=== PATIENT | male | born 1985 | race Caucasian/White ===

== ENCOUNTER 2019-08-27 14:57 | Inpatient (IN) | payer OTHER ==
[2019-08-27 15:13] VITALS: BMI 17.5
[2019-08-27] MEDS ORDERED: FAMOTIDINE 20 MG/50 ML IVPB 20 MG/50 ML MG IVPB ONE ×2 (15:44→16:00)
[2019-08-27] MEDS ORDERED: SODIUM CHLORIDE 0.9% 500 ML INFUS.BAG IV ONE ×2 (15:45→22:03)
[2019-08-27] MEDS ORDERED: MECLIZINE HCL 25 MG TABLET (FP) PO ONE ×2 (15:46→19:05)
--- NOTE | 2019-08-27 15:56 | PDOC ---
History of Present Illness - General Chief Complaint: Lightheaded Stated Complaint: DIZZINESS Time Seen by Provider: 08/27/19 15:21 History Source: Patient Exam Limitations: No Limitations - History of Present Illness Initial Comments: 08/27/19 15:46 Patient is a 33-year-old transgender now male on testosterone injections, history of anxiety depression, seasonal and food allergies, bilateral mastectomy complaining of dizziness since 7 AM this morning. Patient states that he started getting the symptoms while laying in bed described as a spinning, associated with nausea, no vomiting. States he has been laying in bed all day with eyes close since this alleviates his symptoms, but aggravated with movement. Reports he has had a URI symptoms last week but getting better. He endorses having these symptoms intermittently but never this bad for the past 2 to 3 months. States usually lasts for few hours then resolves. He has taken no meds for his symptoms. Denies ringing in the ear, headache, fever, chills. No recent travel. PMD: Dr. Porter PMHX: as above PSOCHX: neg etoh, drug, cig PFamHX: noncontributory ALL: NKDA GENERAL/CONSTITUTIONAL: [No fever or chills. No weakness. No weight change.] HEAD, EYES, EARS, NOSE AND THROAT: [No change in vision. No ear pain or discharge. No sore throat.] CARDIOVASCULAR: [No chest pain or shortness of breath.] RESPIRATORY: [No cough, wheezing, or hemoptysis.] GASTROINTESTINAL: [No nausea, vomiting, diarrhea or constipation. No rectal bleeding.] GENITOURINARY: [No dysuria, frequency, or change in urination.] MUSCULOSKELETAL: [No joint or muscle swelling or pain. No neck or back pain.] SKIN AND BREASTS: [No rash or easy bruising.] NEUROLOGIC: [No headache, (+) vertigo, (-) loss of consciousness, or loss of sen sation.] PSYCHIATRIC: [(+) depression or anxiety.] ENDOCRINE: [No increased thirst. No abnormal weight change.] HEMATOLOGIC/LYMPHATIC: [No anemia, easy bleeding, or history of blood clots.] ALLERGIC/IMMUNOLOGIC: [No hives or skin allergy. No latex allergy.] GENERAL: [The patient is awake, alert, and fully oriented, in acute distress, shielding eyes.] HEAD: [Normal with no signs of trauma.] EYES: [Pupils equal, round and reactive to light, extraocular movements intact, sclera anicteric, conjunctiva clear.] ENT: [Ears normal, nares patent, oropharynx clear without exudates. Moist mucous membranes.] NECK: [Normal range of motion, supple without lymphadenopathy, JVD, or masses.] LUNGS: [Breath sounds equal, clear to auscultation bilaterally. No wheezes, and no crackles.] HEART: [Regular rate and rhythm, normal S1 and S2 without murmur, rub.] ABDOMEN: [Soft, nontender, normoactive bowel sounds. No guarding, no rebound. No masses.] EXTREMITIES: [Normal range of motion, no edema. No clubbing or cyanosis. No cords, erythema, or tenderness.] NEUROLOGICAL: [Cranial nerves II through XII grossly intact. Normal speech, gait not tested, (+) nystagmus, 5/5 strength, no facial asymmetry, moving all extremities] PSYCH: [Normal mood, normal affect.] SKIN: [Warm, Dry, normal turgor, no rashes or lesions noted.] Past History - Past Medical History Allergies/Adverse Reactions: Allergies Allergy/AdvReac Type Severity Reaction Status Date / Time No Known Allergies Allergy Verified 08/27/19 15:10 Home Medications: Ambulatory Orders Testosterone Enanthate [Xyosted] 0 mg SQ ASDIR 08/27/19 COPD: No Other medical history: DENIES - Immunization History Immunization Up to Date: Yes - Psycho Social/Smoking Cessation Hx Smoking History: Never smoked Hx Alcohol Use: No Drug/Substance Use Hx: No *Physical Exam - Vital Signs Last Vital Signs Temp Pulse Resp BP Pulse Ox 97.9 F 100 H 18 114/72 100 08/27/19 15:11 08/27/19 15:11 08/27/19 15:11 08/27/19 15:11 08/27/19 15:11 ED Treatment Course - LABORATORY CBC & Chemistry Diagram: 08/27/19 16:17 08/27/19 16:17 Medical Decision Making - Medical Decision Making 08/27/19 15:46 Patient is a 33-year-old transgender now male on testosterone injections, history of anxiety depression, seasonal and food allergies, bilateral mastectomy complaining of dizziness since 7 AM this morning. Patient states that he started getting the symptoms while laying in bed described as a spinning, associated with nausea, no vomiting. States he has been laying in bed all day with eyes close since this alleviates his symptoms, but aggravated with movement. Reports he has had a URI symptoms last week but getting better. He endorses having these symptoms intermittently but never this bad for the past 2 to 3 months. States usually lasts for few hours then resolves. He has taken no meds for his symptoms. Denies ringing in the ear, headache, fever, chills. No recent travel. Symptoms consistent with vertigo Labs Reglan, IV fluids, Antivert Reassess Patient initially refused Antivert stating that he is unable to sit up to take the pill. Patient continued to have symptoms however is requesting something to eat. After eating patient decided he would take the Antivert at that point. 08/27/19 17:19 SR rate 107, right axis incomplete RBBB Labs reviewed no acute findings Patient continues to be symptomatic of vertigo unable/refusing to sit up in bed. Was given Valium 5 mg p.o. 08/27/19 23:31 Patient seems improved he is now sitting up on the bed however he states he still has some vertigo symptoms. He was therefore, given repeat dose of Reglan 10 mg IV and will saline for CT scan of his head. 08/27/19 23:52 Patient Full Name: MAGDALENE CARLISLE Patient Accession No: [id number] Patient : [id number] Reason for Exam: dizziness Referring Physician: Patient Name: MAYLIN DEL CASTILLO THIS IS A PRELIMINARY REPORT FROM [facility] EXAM: CT Head wo IMAGES: 224 EXAM DATE AND TIME: 2019-08-27 23:24:00 HISTORY: 33 year old man: Dizziness. COMPARISON: None TECHNIQUE: Non-contrast axial images were obtained. Coronal images were also generated. FINDINGS: The cerebral sulci and ventricles are normal in size. There are no intracranial hemorrhages, extra-axial fluid collections or evidence of an intra- axial mass lesion. There is no evidence of an acute or chronic ischemic lesion at this time. Orbital and petrous structures, cerebellopontine angles, and posterior fossa appear unremarkable. The paranasal and mastoid sinuses are clear. IMPRESSION: Normal CT scan of the head. No intracranial hemorrhages, extra-axial fluid collections or intra-axial mass lesion. . One or more of the following dose reduction techniques were used: automated exposure control, adjustment of the mA and/or kV according to patient size, use of iterative reconstructive technique. THIS DOCUMENT HAS BEEN ELECTRONICALLY SIGNED Errol Beck MD. 08/27/2019 23:48 EST M.D. Please call [facility] [phone] ([phone]) with questions. INTERPRETING RADIOLOGIST: Errol Beck MD Electronically Signed: Aug 27, 2019 11:48PM EST CT head showed no acute findings. Patient still complains of dizziness symptoms on sitting up. PE: NEURO: (+) Nystagmus, inability to tandem gait. Will admit patient for persistent vertigo to observation and neuro follow-up in the a.m. Endorsed to the night team pending admission Discharge - Discharge Information Problems reviewed: Yes Clinical Impression/Diagnosis: Vertigo Condition: Stable - Follow up/Referral Referrals: ON STAFF,NOT [Primary Care Provider] - Fatimah Ashby MD [Staff Physician] - - Patient Discharge Instructions Patient Printed Discharge Instructions: DI for Benign Paroxysmal Positional Vertigo - Post Discharge Activity
[2019-08-27] MEDS ORDERED: MECLIZINE HCL 25 MG TABLET (FP) ONE ×2 (16:00→18:46)
[2019-08-27 16:33] LABS: BASO % 0.5 % (0-2.0); EOS % 0.4 % (0-4.5); HEMOGLOBIN 16.5 GM/dL (11.7-16.9); LYMPH % 11.1 % (8-40); MCH 29.8 pg (25.7-33.7); MCHC 33.7 g/dl (32.0-35.9); MEAN CELL VOLUME 88.6 fl (80-96); MEAN PLT VOLUME 7.6 fl (7.5-11.1); MONO % 7.1 % (3.8-10.2); NEUT % 80.9 % (42.8-82.8); PLATELET COUNT 269 K/MM3 (134-434); RBC 5.53 M/mm3 (4.00-5.60); RDW 13.3 % (11.9-15.9); WHITE BLOOD COUNT 10.5 K/mm3 (4.0-10.0)
[2019-08-27] MEDS ORDERED: METOCLOPRAMIDE HCL INJECTION 10 MG/2 ML VIAL IVPUSH ONE ×2 (16:45→23:07)
[2019-08-27] MEDS ORDERED: METOCLOPRAMIDE HCL INJECTION 10 MG/2 ML VIAL ONE ×2 (16:55→23:20)
[2019-08-27 17:10] LABS: ALBUMIN 3.7 g/dl (3.4-5.0); BILIRUBIN,TOTAL 0.7 mg/dL (0.2-1); BLOOD UREA NITROGEN 11.5 mg/dL (7-18); CALCIUM 8.5 mg/dL (8.5-10.1); CREATININE 0.8 mg/dL (0.55-1.3); POTASSIUM 3.5 mmol/L (3.5-5.1); TOT PROT 7.1 g/dl (6.4-8.2)
[2019-08-27] MEDS ORDERED: diazePAM 5 MG TABLET ONE ×2 (19:43→19:56)
[2019-08-27] MEDS: diazePAM 5 MG TABLET PO ONE ×2 (19:49→19:59)
[2019-08-27 20:14] LABS: URINE APPEARANCE CLEAR; URINE BILIRUBIN NEGATIVE (NEGATIVE); URINE COLOR YELLOW; URINE GLUCOSE (UA) NEGATIVE (NEGATIVE); URINE KETONE 1+ (NEGATIVE); URINE LEUK ESTERASE NEGATIVE (NEGATIVE); URINE NITRITE NEGATIVE (NEGATIVE); URINE PROTEIN NEGATIVE (NEGATIVE); URINE UROBILINOGEN 0.2 mg/dL (0.2-1.0)
--- NOTE | 2019-08-28 00:12 | PDOC ---
*Physical Exam - Vital Signs Last Vital Signs Temp Pulse Resp BP Pulse Ox 97.9 F 100 H 18 114/72 100 08/27/19 15:11 08/27/19 15:11 08/27/19 15:11 08/27/19 15:11 08/27/19 15:11 ED Treatment Course - LABORATORY CBC & Chemistry Diagram: 08/27/19 16:17 08/27/19 16:17 - ADDITIONAL ORDERS Additional order review: Laboratory Results 08/27/19 08/27/19 20:00 16:17 Sodium 141 Potassium 3.5 Chloride 107 Carbon Dioxide 26 Anion Gap 8 BUN 11.5 Creatinine 0.8 Est GFR (CKD-EPI)AfAm 137.96 Est GFR (CKD-EPI)NonAf 119.03 Random Glucose 98 Calcium 8.5 Total Bilirubin 0.7 AST 27 ALT 18 Alkaline Phosphatase 63 Total Protein 7.1 Albumin 3.7 Urine Color Yellow Urine Appearance Clear Urine pH 5.0 Ur Specific [place] 1.022 Urine Protein Negative Urine Glucose (UA) Negative Urine Ketones 1+ H Urine Blood Negative Urine Nitrite Negative Urine Bilirubin Negative Urine Urobilinogen 0.2 Ur Leukocyte Esterase Negative 08/27/19 16:17 RBC 5.53 MCV 88.6 MCHC 33.7 RDW 13.3 MPV 7.6 Neutrophils % 80.9 Lymphocytes % 11.1 Monocytes % 7.1 Eosinophils % 0.4 Basophils % 0.5 - Medications Given in the ED: ED Medications Discontinued Medications Generic Name Dose Route Start Last Admin Trade Name Freq PRN Reason Stop Dose Admin Diazepam 5 mg 08/27/19 19:26 08/27/19 19:59 Valium - PO 08/27/19 19:27 5 mg ONCE ONE Administration Famotidine/Sodium Chloride 20 mg in 50 mls @ 100 mls/hr 08/27/19 15:44 08/27/19 16:10 Pepcid 20 Mg Premixed Ivpb - IVPB 08/27/19 16:13 100 mls/hr ONCE ONE Administration Meclizine HCl 50 mg 08/27/19 15:46 08/27/19 16:10 Antivert - PO 08/27/19 15:47 Not Given ONCE ONE Meclizine HCl 50 mg 08/27/19 19:05 08/27/19 18:50 Antivert - PO 08/27/19 19:06 50 mg ONCE ONE Administration Metoclopramide HCl 10 mg 08/27/19 16:45 08/27/19 16:55 Reglan Injection - IVPUSH 08/27/19 16:46 10 mg ONCE ONE Administration Metoclopramide HCl 10 mg 08/27/19 23:07 08/27/19 23:22 Reglan Injection - IVPUSH 08/27/19 23:08 10 mg ONCE ONE Administration Sodium Chloride 1,000 ml 08/27/19 15:45 08/27/19 16:10 Normal Saline - IV 08/27/19 15:46 1,000 ml ONCE ONE Administration Sodium Chloride 1,000 ml 08/27/19 22:03 08/27/19 22:14 Normal Saline - IV 08/27/19 22:04 1,000 ml ONCE ONE Administration Medical Decision Making - Medical Decision Making 08/28/19 00:12 Pt signed out to me: Patient Name: MAYLIN DEL CASTILLO THIS IS A PRELIMINARY REPORT FROM [facility] EXAM: CT Head wo IMAGES: 224 EXAM DATE AND TIME: 2019-08-27 23:24:00 HISTORY: 33 year old man: Dizziness. COMPARISON: None TECHNIQUE: Non-contrast axial images were obtained. Coronal images were also generated. FINDINGS: The cerebral sulci and ventricles are normal in size. There are no intracranial hemorrhages, extra-axial fluid collections or evidence of an intra-axial mass lesion. There is no evidence of an acute or chronic ischemic lesion at this time. Orbital and petrous structures, cerebellopontine angles, and posterior fossa appear unremarkable. The paranasal and mastoid sinuses are clear. IMPRESSION: Normal CT scan of the head. No intracranial hemorrhages, extra-axial fluid collections or intra-axial mass lesion. 08/28/19 00:12 Pt will have utox sent 08/28/19 19:50 Pt still has vertigo and is refusing to leave and so he will be admitted to hospitalists. 08/28/19 19:59 Discharge - Discharge Information Problems reviewed: Yes Clinical Impression/Diagnosis: Vertigo Condition: Improved - Follow up/Referral - Patient Discharge Instructions - Post Discharge Activity
--- NOTE | 2019-08-28 00:33 | PDOC ---
*Physical Exam - Vital Signs Last Vital Signs Temp Pulse Resp BP Pulse Ox 97.9 F 100 H 18 114/72 100 08/27/19 15:11 08/27/19 15:11 08/27/19 15:11 08/27/19 15:11 08/27/19 15:11 ED Treatment Course - LABORATORY CBC & Chemistry Diagram: 08/27/19 16:17 08/27/19 16:17 - ADDITIONAL ORDERS Additional order review: Laboratory Results 08/27/19 08/27/19 20:00 16:17 Sodium 141 Potassium 3.5 Chloride 107 Carbon Dioxide 26 Anion Gap 8 BUN 11.5 Creatinine 0.8 Est GFR (CKD-EPI)AfAm 137.96 Est GFR (CKD-EPI)NonAf 119.03 Random Glucose 98 Calcium 8.5 Total Bilirubin 0.7 AST 27 ALT 18 Alkaline Phosphatase 63 Total Protein 7.1 Albumin 3.7 Urine Color Yellow Urine Appearance Clear Urine pH 5.0 Ur Specific [place] 1.022 Urine Protein Negative Urine Glucose (UA) Negative Urine Ketones 1+ H Urine Blood Negative Urine Nitrite Negative Urine Bilirubin Negative Urine Urobilinogen 0.2 Ur Leukocyte Esterase Negative 08/27/19 16:17 RBC 5.53 MCV 88.6 MCHC 33.7 RDW 13.3 MPV 7.6 Neutrophils % 80.9 Lymphocytes % 11.1 Monocytes % 7.1 Eosinophils % 0.4 Basophils % 0.5 - Medications Given in the ED: ED Medications Discontinued Medications Generic Name Dose Route Start Last Admin Trade Name Freq PRN Reason Stop Dose Admin Diazepam 5 mg 08/27/19 19:26 08/27/19 19:59 Valium - PO 08/27/19 19:27 5 mg ONCE ONE Administration Famotidine/Sodium Chloride 20 mg in 50 mls @ 100 mls/hr 08/27/19 15:44 08/27/19 16:10 Pepcid 20 Mg Premixed Ivpb - IVPB 08/27/19 16:13 100 mls/hr ONCE ONE Administration Meclizine HCl 50 mg 08/27/19 15:46 08/27/19 16:10 Antivert - PO 08/27/19 15:47 Not Given ONCE ONE Meclizine HCl 50 mg 08/27/19 19:05 08/27/19 18:50 Antivert - PO 08/27/19 19:06 50 mg ONCE ONE Administration Metoclopramide HCl 10 mg 08/27/19 16:45 08/27/19 16:55 Reglan Injection - IVPUSH 08/27/19 16:46 10 mg ONCE ONE Administration Metoclopramide HCl 10 mg 08/27/19 23:07 08/27/19 23:22 Reglan Injection - IVPUSH 08/27/19 23:08 10 mg ONCE ONE Administration Sodium Chloride 1,000 ml 08/27/19 15:45 08/27/19 16:10 Normal Saline - IV 08/27/19 15:46 1,000 ml ONCE ONE Administration Sodium Chloride 1,000 ml 08/27/19 22:03 08/27/19 22:14 Normal Saline - IV 08/27/19 22:04 1,000 ml ONCE ONE Administration Medical Decision Making - Medical Decision Making 08/28/19 00:31 Pt signed out to me by SANDI Goins. 33 transgender M who presents with intractable vertigo. CTH negative. Pending admission for intractable vertiginous symptoms. No neuro consult. Pending call back from admitting team. 08/28/19 00:40 Patient endorsed for admission under Dr. Petersen. Discharge - Discharge Information Problems reviewed: Yes Clinical Impression/Diagnosis: Vertigo Condition: Guarded - Admission Yes - Follow up/Referral Referrals: ON STAFF,NOT [Primary Care Provider] - Fatimah Ashby MD [Staff Physician] - - Patient Discharge Instructions Patient Printed Discharge Instructions: DI for Benign Paroxysmal Positional Vertigo - Post Discharge Activity
--- NOTE | 2019-08-28 01:55 | HP ---
CHIEF COMPLAINT: vertigo PCP: Dr. Porter HISTORY OF PRESENT ILLNESS: Alexx Ann is a 33 year old transgender female to male with a past medical history of anxiety and depression presenting for vertigo. Patient awoke at 7AM this morning and had vertigo which was unremitting and persistent throughout the day. Associated with the vertigo was nausea, poor PO intake, very mild headache. Of note, patient just recovered from a URI which started 1 week prior and ended this past . Vertigo is exacerbated with head and body movement. Denies tinnitus, hearing loss, ear pain, ear fullness, new lesions on the skin, phonophobia. Vertigo lasted for the entire day and is only mildly relieved with closing of the eyes and rest. Previously had episodes of brief vertigo like episodes upon sudden standing in the last several months that lasted for seconds and disappeared. Also had an episode of vertigo many years prior but unknown what that vertigo episode was associated with. Denied fever, chills, chest pain, shortness of breath, abdominal pain, constipation, diarrhea, dysuria, hematuria, frequency, urgency, focal weakness, dysphagia, dysarthria, visual changes. Patient denies recent travel, sick contacts. No travel to [place], [place], [place]. 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 Allergies No Known Allergies Allergy (Verified 08/27/19 15:10) HOME MEDICATIONS: Home Medications Medication Instructions Recorded Testosterone Enanthate [Xyosted] 0 mg SQ ASDIR 08/27/19 REVIEW OF SYSTEMS CONSTITUTIONAL: loss of appetite Absent: fever, chills, diaphoresis, generalized weakness, malaise, weight change HEENT: Absent: rhinorrhea, nasal congestion, throat pain, throat swelling, difficulty swallowing, visual changes CARDIOVASCULAR: Absent: chest pain, syncope, palpitations, irregular heart rate, lightheadedness, peripheral edema RESPIRATORY: Absent: cough, shortness of breath, dyspnea with exertion, orthopnea, wheezing GASTROINTESTINAL: nausea Absent: abdominal pain, abdominal distension, vomiting, diarrhea, constipation GENITOURINARY: Absent: dysuria, frequency, urgency, hesitancy, hematuria, MUSCULOSKELETAL: Absent: myalgia, arthralgia, joint swelling, back pain, neck pain SKIN: Absent: rash, itching, pallor HEMATOLOGIC/IMMUNOLOGIC: Absent: easy bleeding, easy bruising, lymphadenopathy, frequent infections ENDOCRINE: Absent: unexplained weight gain, unexplained weight loss, heat intolerance, cold intolerance NEUROLOGIC: Absent: focal weakness or paresthesias, seizureheadache, dizziness, unsteady gait, mental status changes, bladder or bowel incontinence PSYCHIATRIC: Absent: anxiety, depression, suicidal or homicidal ideation, hallucinations. PHYSICAL EXAMINATION Vital Signs - 24 hr 08/27/19 08/28/19 15:11 01:41 Temperature 97.9 F 98.7 F Pulse Rate 100 H 114 H Respiratory 18 20 Rate Blood Pressure 114/72 114/70 O2 Sat by Pulse 100 Oximetry (%) GENERAL: Awake, alert, and fully oriented, in mild acute distress. Thin appearing HEAD: Normal with no signs of trauma. EYES: Pupils equal, round and reactive to light, extraocular movements intact, conjunctiva clear. Left beating nystagmus noted exacerbated by moving to the left. EARS, NOSE, THROAT: Oropharynx clear without exudates. Moist mucous membranes. NECK: Normal range of motion, supple without lymphadenopathy, JVD. LUNGS: Breath sounds equal, clear to auscultation bilaterally. No wheezes, and no crackles. No accessory muscle use. HEART: Regular rate and rhythm, normal S1 and S2 without murmur. ABDOMEN: Soft, nontender, not distended, normoactive bowel sounds, no guarding, no rebound, no masses. MUSCULOSKELETAL: Normal range of motion at all joints. No bony deformities or tenderness. UPPER EXTREMITIES: 2+ pulses, warm, well-perfused. No cyanosis. No clubbing. No peripheral edema. LOWER EXTREMITIES: 2+ pulses, warm, well-perfused. No calf tenderness. No peripheral edema. NEUROLOGICAL: Cranial nerves II-XII intact. Nystagmus as above. [place] localizing to left ear, AC>BC on bone sides, indicating probability for sensorineural hearing loss on right side. 5/5 muscle strength bilaterally upper and lower extremities. Sensation intact to gross touch throughout. PSYCHIATRIC: Cooperative. Avoids eye contact due to dizziness. Appropriate mood and affect. SKIN: Warm, dry, normal turgor, noted bilateral mastectomy scars. Numerous tattoos. No lesions noted on the skin. Laboratory Results - last 24 hr 08/27/19 08/27/19 08/27/19 16:17 16:17 20:00 WBC 10.5 H RBC 5.53 Hgb 16.5 Hct 49.0 MCV 88.6 MCH 29.8 MCHC 33.7 RDW 13.3 Plt Count 269 MPV 7.6 Absolute Neuts (auto) 8.5 H Neutrophils % 80.9 Lymphocytes % 11.1 Monocytes % 7.1 Eosinophils % 0.4 Basophils % 0.5 Nucleated RBC % 0 Sodium 141 Potassium 3.5 Chloride 107 Carbon Dioxide 26 Anion Gap 8 BUN 11.5 Creatinine 0.8 Est GFR (CKD-EPI)AfAm 137.96 Est GFR (CKD-EPI)NonAf 119.03 Random Glucose 98 Calcium 8.5 Total Bilirubin 0.7 AST 27 ALT 18 Alkaline Phosphatase 63 Total Protein 7.1 Albumin 3.7 Urine Color Yellow Urine Appearance Clear Urine pH 5.0 Ur Specific [place] 1.022 Urine Protein Negative Urine Glucose (UA) Negative Urine Ketones 1+ H Urine Blood Negative Urine Nitrite Negative Urine Bilirubin Negative Urine Urobilinogen 0.2 Ur Leukocyte Esterase Negative Alcohol, Quantitative 08/28/19 00:25 WBC RBC Hgb Hct MCV MCH MCHC RDW Plt Count MPV Absolute Neuts (auto) Neutrophils % Lymphocytes % Monocytes % Eosinophils % Basophils % Nucleated RBC % Sodium Potassium Chloride Carbon Dioxide Anion Gap BUN Creatinine Est GFR (CKD-EPI)AfAm Est GFR (CKD-EPI)NonAf Random Glucose Calcium Total Bilirubin AST ALT Alkaline Phosphatase Total Protein Albumin Urine Color Urine Appearance Urine pH Ur Specific [place] Urine Protein Urine Glucose (UA) Urine Ketones Urine Blood Urine Nitrite Urine Bilirubin Urine Urobilinogen Ur Leukocyte Esterase Alcohol, Quantitative < 3 CT of the head: IMPRESSION: Normal CT scan of the head. No intracranial hemorrhages, extra-axial fluid collections or intra-axial mass lesion. EKG--> sinus tachycardia, incomplete RBBB, QTc 456 ASSESSMENT/PLAN: Alexx Ann is a 33 year old transgender female to male with a past medical history of anxiety and depression admitted for vertigo likely in the setting of vestibular neuritis/labyrinthitis. Vertigo - in the setting of recent URI and unremitting vertigo symptoms with questionable sensorineural hearing loss suspicious for vestibular neuritis vs labyrinthitis - unlikely BPPV due to longevity of symptoms, [place] due to lack of tinnitus and ear fullness, herpes zoster due to lack of lesions or history of herpes zoster, no history of trauma or aminoglycoside use - Testosterone injections with <3% chance of causing vertigo like symptoms as per UptoDate and unlikely in this case as the patient has been on injections without reactions since 2011. Last injection 2 weeks prior. - as per Upto[employer] for vestibular neuritis/labyrinthitis will initiate corticosteroid treatment 60mg for 5 days, and then taper 40, 30, 20, 10, 5 for 5 days. - CT as above, awaiting final read - neurology consulted - continue meclizine 25mg q6h prn - Reglan for nausea - Utox negative - neurochecks - bedrest, fall precautions - Physical therapy Malnourished - BMI 17.6 and very thin on exam, Albumin normal 3.7 - endorses good diet - dietary consulted - dietary supplement DVT PPx - heparin 5000 units subq bid FEN - no standing fluids, encourage PO intake - continue to monitor electrolytes and replete as necessary - Regular diet Dispo - admit to Med-surg Family Medical History Family Hx Cardiac Disorders: Grandmother (maternal) (pacemaker) Family Hx Diabetes: Grandmother (maternal), Grandfather (maternal) Visit type - Emergency Visit Emergency Visit: Yes ED Registration Date: 08/28/19 Care time: The patient presented to the Emergency Department on the above date and was hospitalized for further evaluation of their emergent condition. - New Patient This patient is new to me today: Yes Date on this admission: 08/28/19 - Critical Care Critical Care patient: No
[2019-08-28] MEDS ORDERED: MECLIZINE HCL 25 MG TABLET (FP) PO PRN (03:00)
--- NOTE | 2019-08-28 03:13 | PN ---
Teaching Attending Note Name of Resident: Joey Gold ATTENDING PHYSICIAN STATEMENT I saw and evaluated the patient. I reviewed the resident's note and discussed the case with the resident. I agree with the resident's findings and plan as documented. SUBJECTIVE: 33-year-old transgender female to male with past history of anxiety presents complaining of vertigo since 7 AM on 08/27/2019. Vertigo was persistent related to any change in position. Reported some mild nausea, had a URI which started about 1 week ago and ended 2 days prior to symptom onset. Denied any significant headaches or any focal neurological deficits. Of note patient takes testosterone injections every 2 weeks and is status post bilateral mastectomy. Denied any hearing difficulties or any ear fullness. OBJECTIVE: Last Vital Signs Temp Pulse Resp BP Pulse Ox 98.7 F 114 H 20 114/70 100 08/28/19 01:41 08/28/19 01:41 08/28/19 01:41 08/28/19 01:41 08/27/19 15:11 On physical exam patient was not in not in any acute distress. Head was atraumatic, normocephalic. Mucous membranes were moist. Neck was supple. Cardiovascular exam was S1, S2 normal rate and rhythm. Lungs clear to auscultation bilaterally. Abdomen was soft, nontender. Motor strength is intact in all extremities. Skin was negative for any vesicular lesions. Abnormal Lab Results 08/27/19 08/27/19 16:17 20:00 WBC 10.5 H Absolute Neuts (auto) 8.5 H Urine Ketones 1+ H Head CT was negative for any acute insults. ASSESSMENT AND PLAN: 33-year-old transgender male with persistent vertigo. Suspect possible labyrinthitis status post upper respiratory tract infection. Less likely benign positional vertigo as does not improve with position change. Less likely CVA given's patient's young age and lack of other neurological findings. Admit to MedSurg V fluid hydration Meclizine PRN if persistent vertigo Zofran IV as needed if nausea Neurology consult Prednisone 60 mg p.o. and then taper for possible postinfectious labyrinthitis Bedrest and fall precautions Physical therapy evaluation SCDs for DVT prophylaxis
[2019-08-28] MEDS: HEPARIN NA (PORCINE) 5,000 UNITS/ML 1ML VIAL SQ SCH ×2 (03:25→05:21)
[2019-08-28] MEDS: predniSONE 20 MG TABLET (UD) PO SCH ×2 (03:25→09:37)
[2019-08-28 03:47] LABS: COCAINE, UR NEGATIVE ng/ml (CUTOFF=300); METHADONE, UR NEGATIVE ng/ml (CUTOFF=300); OPIATES, URI NEGATIVE ng/ml (CUTOFF=300); PHENCYCLIDINE,URINE NEGATIVE ng/ml (CUTOFF=25); URINE AMPHETAMINES NEGATIVE ng/ml (CUTOFF=500); URINE BARBITURATES NEGATIVE ng/ml (CUTOFF=200); URINE BENZODIAZEPINES NEGATIVE ng/ml (CUTOFF=200)
[2019-08-28] MEDS ORDERED: METOCLOPRAMIDE HCL INJECTION 10 MG/2 ML VIAL IVPUSH PRN (05:00)
[2019-08-28 05:38] VITALS: TEMP 98.1
[2019-08-28] MEDS ORDERED: predniSONE 20 MG TABLET (UD) ONE (09:33)
[2019-08-28] MEDS ORDERED: HEPARIN NA (PORCINE) 5,000 UNITS/ML 1ML VIAL ONE (09:33)
--- NOTE | 2019-08-28 09:51 | EKG ---
Test Reason : Blood Pressure : / mmHG Vent. Rate : 107 BPM Atrial Rate : 107 BPM P-R Int : 120 ms QRS Dur : 100 ms QT Int : 342 ms P-R-T Axes : 077 100 055 degrees QTc Int : 456 ms SINUS TACHYCARDIA RIGHTWARD AXIS INCOMPLETE RIGHT BUNDLE BRANCH BLOCK BORDERLINE ECG NO PREVIOUS ECGS AVAILABLE Confirmed by Armando Soler MD ([id number]) on 08/28/2019 9:50:50 AM Referred By: Confirmed By:Armando Soler MD
[2019-08-28] MEDS ORDERED: HEPARIN NA (PORCINE) 5,000 UNITS/ML 1ML VIAL SQ SCH ×2 (10:00→14:00)
--- NOTE | 2019-08-28 10:57 | PN ---
Progress Note (short form) - Note Progress Note: Subjective: no fever or chills. No N/V . he feels much better , minimal vertigo. he did not try to stand up or walk yet . Objective: Vital Signs: Last Vital Signs Temp Pulse Resp BP Pulse Ox 98.1 F 100 H 17 109/69 98 08/28/19 08:01 08/28/19 08:01 08/28/19 08:01 08/28/19 08:01 08/28/19 08:03 Laboratory Results - last 24 hr 08/27/19 08/27/19 08/27/19 16:17 16:17 20:00 WBC 10.5 H RBC 5.53 Hgb 16.5 Hct 49.0 MCV 88.6 MCH 29.8 MCHC 33.7 RDW 13.3 Plt Count 269 MPV 7.6 Absolute Neuts (auto) 8.5 H Neutrophils % 80.9 Lymphocytes % 11.1 Monocytes % 7.1 Eosinophils % 0.4 Basophils % 0.5 Nucleated RBC % 0 Sodium 141 Potassium 3.5 Chloride 107 Carbon Dioxide 26 Anion Gap 8 BUN 11.5 Creatinine 0.8 Est GFR (CKD-EPI)AfAm 137.96 Est GFR (CKD-EPI)NonAf 119.03 Random Glucose 98 Calcium 8.5 Total Bilirubin 0.7 AST 27 ALT 18 Alkaline Phosphatase 63 Total Protein 7.1 Albumin 3.7 Urine Color Yellow Urine Appearance Clear Urine pH 5.0 Ur Specific [place] 1.022 Urine Protein Negative Urine Glucose (UA) Negative Urine Ketones 1+ H Urine Blood Negative Urine Nitrite Negative Urine Bilirubin Negative Urine Urobilinogen 0.2 Ur Leukocyte Esterase Negative Opiates Screen Methadone Screen Barbiturate Screen Phencyclidine Screen Ur Amphetamines Screen MDMA (Ecstasy) Screen Benzodiazepines Screen Cocaine Screen U Marijuana (THC) Screen Alcohol, Quantitative 08/28/19 08/28/19 00:25 03:40 WBC RBC Hgb Hct MCV MCH MCHC RDW Plt Count MPV Absolute Neuts (auto) Neutrophils % Lymphocytes % Monocytes % Eosinophils % Basophils % Nucleated RBC % Sodium Potassium Chloride Carbon Dioxide Anion Gap BUN Creatinine Est GFR (CKD-EPI)AfAm Est GFR (CKD-EPI)NonAf Random Glucose Calcium Total Bilirubin AST ALT Alkaline Phosphatase Total Protein Albumin Urine Color Urine Appearance Urine pH Ur Specific [place] Urine Protein Urine Glucose (UA) Urine Ketones Urine Blood Urine Nitrite Urine Bilirubin Urine Urobilinogen Ur Leukocyte Esterase Opiates Screen Negative Methadone Screen Negative Barbiturate Screen Negative Phencyclidine Screen Negative Ur Amphetamines Screen Negative MDMA (Ecstasy) Screen Negative Benzodiazepines Screen Negative Cocaine Screen Negative U Marijuana (THC) Screen Negative Alcohol, Quantitative < 3 Physical Exam: NAD , awake, alert, cooperative . CV: RRR, No MRG Lungs: CTAB Ext : No edema or erythema Abd: soft, NT, ND , NL BS Neuro: EOMI, round equal pupils, reactive to light . horizontal nystagmus with L gase, also vertigal nystagmus with upward gaze. EOMI, no facial droop. . uvula and tongue at mid line . strength 5/5 in upper and lower extremities proximally and distally . sensation to light touch NL. rapid alternating movements nL. nose to finger and heel to perez NL. Imaging: Head CT , pending read Cxray reviewed. Assessment/Plan: 33 y/o Trnsgender female to male, with h/o anxiety, b/l mastectomies, and recent URI who presented with vertigo. 1- Vertigo, likely due to vestibular neuritis: improved already with steroids . NO signs of [employer] pathology - cont steroids, received 60 yesterday, 40 today. will cont 40 for 5 more days t hen taper 30,20,10, then 5 mg . - make meclizine standing - follow final head CT read. - Neuro eval pending - PT eval 2- DVT PX : heparin sq Dispo : if he is able to walk steadily, will dc later today Visit type - Emergency Visit Emergency Visit: Yes ED Registration Date: 08/28/19 Care time: The patient presented to the Emergency Department on the above date and was hospitalized for further evaluation of their emergent condition. - New Patient This patient is new to me today: No - Critical Care Critical Care patient: No
[2019-08-28] MEDS ORDERED: MECLIZINE HCL 25 MG TABLET (FP) PO SCH (11:00)
[2019-08-28] MEDS ORDERED: MECLIZINE HCL 25 MG TABLET (FP) ONE (11:25)
--- NOTE | 2019-08-28 13:48 | CON.NEURO ---
Consult Consult Specialty:: Symone Referred by:: ER - History of Present Illness History of Present Illness: 33-year-old right-handed man with essentially no medical history except for anxiety and depression presents to the hospital with increasing dizziness patient with a chronic history of dizziness patient denies any recent trauma CAT scan of the head revealed no evidence of acute pathology patient was seen in the emergency room. - History Source History Provided By: Patient Limitations to Obtaining History: No Limitations - Alcohol/Substance Use Hx Alcohol Use: No - Smoking History Smoking history: Never smoked Home Medications - Allergies Allergies/Adverse Reactions: Allergies Allergy/AdvReac Type Severity Reaction Status Date / Time No Known Allergies Allergy Verified 08/27/19 15:10 - Home Medications Home Medications: Ambulatory Orders Testosterone Enanthate [Xyosted] 100 mg SQ ASDIR 08/27/19 Meclizine HCl [Antivert -] 25 mg PO Q6H PRN #20 tablet 08/28/19 Prednisone See Taper PO DAILY #27 tablet 08/28/19 Family Medical History Family History: Unremarkable Review of Systems - Review of Systems Constitutional: reports: No Symptoms Eyes: reports: No Symptoms Neurological: reports: Dizziness, Numbness, Parasthesia Physical Exam-Neuro Vital Signs: Vital Signs Temperature 98.1 F 08/28/19 08:01 Pulse Rate 100 H 08/28/19 08:01 Respiratory Rate 17 08/28/19 08:01 Blood Pressure 109/69 08/28/19 08:01 O2 Sat by Pulse Oximetry (%) 98 08/28/19 08:03 Constitutional: Yes: Well Nourished Neck: Yes: WNL Labs: CBC, BMP 08/27/19 16:17 08/27/19 16:17 - Neuro Exam Level Of Consciousness: Yes: Oriented to Person, Oriented to Place Eyes: Yes: PERRLA Speech: WNL Dominant Hand: Right Cranial Nerves II-XII Intact: Yes Gag: Present DTR's: 1+ Left Bicep, 1+ Right Bicep, 1+ Left Tricep, 1+ Right Tricep Babinski: Absent Response to light touch: Normal Response to pain prick: Normal Response to temperature: Normal Motor Strength: 3/5: Left Arm, Right Arm, Left Leg, Right Leg Imaging - Results Cat Scan: Image Reviewed Problem List - Problems (1) Vertigo Code(s): R42 - DIZZINESS AND GIDDINESS Assessment/Plan 11. MRI of the brain as an outpatient. 2. Continue meclizine the same. 3. Increase by mouth fluid intake. Decrease caffeine intake. Follow up with neurology as an outpatient.
--- NOTE | 2019-08-28 14:09 | DS ---
Physical Examination Vital Signs: Vital Signs Temperature 98.1 F 08/28/19 08:01 Pulse Rate 100 H 08/28/19 08:01 Respiratory Rate 17 08/28/19 08:01 Blood Pressure 109/69 08/28/19 08:01 O2 Sat by Pulse Oximetry (%) 98 08/28/19 08:03 Findings/Remarks: vertigo improved PE : NAD , awake, alert, cooperative . CV: RRR, No MRG Lungs: CTAB Ext : No edema or erythema Abd: soft, NT, ND , NL BS Neuro: EOMI, round equal pupils, reactive to light . horizontal nystagmus with L gase, also vertigal nystagmus with upward gaze. EOMI, no facial droop. . uvula and tongue at mid line . strength 5/5 in upper and lower extremities proximally and distally . sensation to light touch NL. rapid alternating movements nL. nose to finger and heel to perez NL. Labs: CBC, BMP 08/27/19 16:17 08/27/19 16:17 Discharge Summary Problems reviewed: Yes Reason For Visit: VERTIGO Current Active Problems Labyrinthitis of left ear (Acute) Hospital Course: 33 y/o Transgender female to male, with h/o anxiety, b/l mastectomies, and recent URI who presented with vertigo. vertigo started yesterday and caused limitation in ambulation. he reported a URI sx a week prior. his sx were thought to be due to labyrinthitis of L ear. neuro exam was normal except for nystagmus with lateral and upward gaze. CT of head was negative . He was given prednisone and that helped his sx . He was seen by neuro who confirmed the diagnosis . I walked him today and he was steady . his sx imporved . he lives with his p arents. He is discharged on prednisone taper and PRN meclizine . he will followup with neuro and PCP Condition: Improved - Instructions Diet, Activity, Other Instructions: - you were diagnosed with labyrinthitis of the left ear. - take prednisone for that : 40 mg for the next 5 days then 30 mg x 1 day , then 20 mg x 1 day , then 10 mg x 1 day , then 5 mg . then stop - take meclizine as needed for dizziness. - Do NOT drive until you see your primary care doctor and he clears you . - Do not clime ladders or operate heavy machines while you have vertigo - please return to your primary care doctor in 1 week. if you don't have one , I referred you to Dr. Pichardo 's clinic - follow up with Dr. Ashby the neurologit who saw you here in 7-10 days Good luck Referrals: Geoff Pichardo MD [Staff Physician] - ON STAFF,NOT [Primary Care Provider] - Fatimah Ashby MD [Staff Physician] - Disposition: HOME - Home Medications Comprehensive Discharge Medication List: Ambulatory Orders Testosterone Enanthate [Xyosted] 100 mg SQ ASDIR 08/27/19 Meclizine HCl [Antivert -] 25 mg PO Q6H PRN #20 tablet 08/28/19 Prednisone See Taper PO DAILY #27 tablet 08/28/19 This patient is new to me today: No Emergency Visit: Yes ED Registration Date: 08/28/19 Care time: The patient presented to the Emergency Department on the above date and was hospitalized for further evaluation of their emergent condition. Critical Care patient: No - Discharge Referral Referred to [facility] No
[2019-08-28 14:11] VITALS: BP 108/72; PULSE 97
== END 2019-08-28 14:33 | disposition home or self-care (01) | DRG 111 ==
LOC: JER 14:57 → JERBED 08-28 00:40
PROVIDERS: ADMIT Internal Medicine; ATTEND Internal Medicine
DX: H83.02 Labyrinthitis, left ear (principal); F41.8 Other specified anxiety disorders; F64.1 Dual role transvestism; I45.10 Unspecified right bundle-branch block; H81.10 Benign paroxysmal vertigo, unspecified ear; H55.00 Unspecified nystagmus; E46 Unspecified protein-calorie malnutrition; Z68.1 Body mass index [BMI] 19.9 or less, adult; Z87.890 Personal history of sex reassignment
CPT/HCPCS: 36415; 70450-TC; 71045-TC-FY; 80053; 80307; 81003; 85025; 87086; 93005; 93010; 99285-25